=== PATIENT | male | born 1945 | race Caucasian/White ===

== ENCOUNTER 2017-04-10 13:09 | Emergency (ER) | payer OTHER ==
[~2017-04-10] VITALS: Ht 170.2 cm; Wt 70.0 kg
[2017-04-10 13:13] VITALS: TEMP 36.5; Ht 170.2 cm; Wt 70.0 kg
[2017-04-10] MEDS ORDERED: RANITIDINE HCL 50 MG/100 ML D5W IV STA (13:43)
[2017-04-10] MEDS ORDERED: SODIUM CHLORIDE 0.9% 500ML 500 ML IV STA (13:43)
[2017-04-10] MEDS ORDERED: ONDANSETRON 4MG OD TAB PO ONE (13:45)
[2017-04-10] MEDS ORDERED: AMAN100C18 PO (13:48)
[2017-04-10] MEDS ORDERED: ELDP5 PO (13:48)
[2017-04-10] MEDS ORDERED: CARB25TA12 (13:48)
[2017-04-10] MEDS ORDERED: VENL1CAP92 PO (13:48)
[2017-04-10] MEDS ORDERED: ALLO300T2 PO (13:48)
[2017-04-10] MEDS ORDERED: NIFE30TA83 PO (13:48)
[2017-04-10] MEDS ORDERED: CLON0.5T3 PO (13:48)
[2017-04-10] MEDS ORDERED: PRVC40 PO (13:48)
[2017-04-10] MEDS ORDERED: EFFSR75 PO (13:48)
[2017-04-10] MEDS ORDERED: NXM/40 PO (13:48)
[2017-04-10] MEDS ORDERED: ATEN-173 PO (13:48)
--- NOTE | 2017-04-10 13:50 | EMERGENCY ROOM VISIT NOTE ---
History First contact with patient: 13:30 (Marissa Sumner MD) First contact with patient: 13:30 (Candelario Alfaro D.O.) Chief Complaint: DIARRHEA Stated Complaint: DIARRHEA Nursing Triage Summary: pt c/o being up all night with diarrhea (Marissa Sumner MD) History of Present Illness The patient is a 71 year old male who presents to the Emergency Room with complaints of diarrhea over the last day. He reports he is visiting [place] from [place], [place]. Yesterday he ate pizza downtown and also had food from the diner. He does not remember eating very much. Upon getting home he started having frequent diarrhea every hour overnight. He denied any fevers. He vomited once overnight. He took 1/2 tablet of Ciprofloxacin and a 2mg tablet of Immodium. He is still passing watery stool currently. He reports a hx of GERD and feels reflux pain currently. He usually takes a PPI at home. He also has a hx of Parkinson's and took his Parkinson's medication just now. (Marissa Sumner MD) Review of Systems See HPI for pertinent positives & negatives. A total of 10 systems reviewed and were otherwise negative. (Marissa Sumner MD) Past Medical/Surgical History Medical Problems: (1) Parkinson disease (Candelario Alfaro D.O.) PMHx: Parkinson's Disease Prostate Ca PSHx: Removal of BCC's (Marissa Sumner MD) Family History No pertinent FHx (Marissa Sumner MD) Social History Smoking Status: Former Smoker Smokeless Tobacco Use: No Alcohol Use: occasionally Drug Use: none Marital Status: Housing Status: lives with family (Marissa Sumner MD) Current/Historical Medications Scheduled Allopurinol (Zyloprim), 300 MG PO DAILY Amantadine Hcl (Amantadine Hcl), 100 MG PO TID Atenolol (Tenormin), 25 MG PO DAILY Clonazepam (Klonopin), 1 MG PO HS Esomeprazole Magnesium (Nexium), 40 MG PO DAILY Nifedipine Ext Rel (Procardia Xl Ext Rel), 30 MG PO DAILY Pravastatin Sod (Pravastatin Sodium), 40 MG PO DAILY Selegiline HCl (Selegiline HCl), 5 MG PO QAM Venlafaxine Hcl (Effexor Extended Rel), 75 MG PO DAILY Venlafaxine Hcl (Effexor Xr), 37.5 MG PO DAILY Miscellaneous Medications Carbidopa/Levodopa (Sinemet 25MG/100MG) Physical Exam Vital Signs Date Time Temp Pulse Resp B/P (MAP) Pulse Ox O2 Delivery O2 Flow Rate FiO2 04/10/17 14:24 95 04/10/17 13:13 36.5 105 20 120/75 94 Room Air (Candelario Alfaro D.O.) Physical Exam GENERAL: Awake, alert, well-appearing, in no acute distress HENT: Normocephalic, atraumatic. Oropharynx moist, not dry. EYES: Normal conjunctiva. Sclera non-icteric. NECK: Supple. No nuchal rigidity. FROM. No JVD. RESPIRATORY: Clear to auscultation. CARDIAC: Regular rate, normal rhythm. Extremities warm and well perfused. Pulses equal. ABDOMEN: Soft, non-distended. No tenderness to palpation. No rebound or guarding. No masses. RECTAL: Deferred. MUSCULOSKELETAL: Chest examination reveals no tenderness. The back is symmetrical on inspection without obvious abnormality. There is no CVA tenderness to palpation. No joint edema. LOWER EXTREMITIES: Calves are equal size bilaterally and non-tender. No edema. No discoloration. NEURO: Normal sensorium. No sensory or motor deficits noted. SKIN: No rash or jaundice noted. (Marissa Sumner MD) Medical Decision & Procedures Laboratory Results Test 04/10/17 13:43 (Candelario Alfaro, Ele[facility]) ED Course 1:40PM: I performed a history and physical examination on the patient in room C3. I discussed the case with the attending Dr. Alfaro. 1:50PM: I ordered a CBC, CMP, an IV to be placed, and EKG, and 500cc of NSS. I also ordered Zofran 4mg ODT and Zantac IV. 2:40PM: The patient was evaluated by Dr. Alfaro. 4:20PM: The patient was resting comfortably. 4:40PM: The results were discussed with the patient and his sister. He verbalized agreement of the treatment plan. He was discharged home with his sister. (Marissa Sumner MD) Medical Decision 71 yo M w/Divya who presents with diarrhea. Ddx includes gastroenteritis, food borne illness, GI bleed, IBD, IBS. He has been eating at restaurants in town which is a change in his diet from before. He also takes Ciprofloxacin relatively frequently. He had negative bloodwork and a negative C. Diff scan. He was hydrated with IV fluids. He was felt to be stable for discharge with PCP follow up. (Marissa Sumner MD) Impression Primary Impression: Diarrhea Departure Information Dispostion Home / Self-Care Condition GOOD Referrals No Doctor, Assigned (PCP) Patient Instructions My [facility]
[2017-04-10 14:40] LABS: BASO % 0.1 %; BASO ABS # 0.01 K/uL (0-0.2); COMPLETE YES; EOS % 0.1 %; HEMATOCRIT 46.1 % (42-52); IG% 0.2 %; LYMPH % 4.1 %; LYMPH ABS # 0.39 K/uL (1.2-3.4); MEAN CELL VOLUME 82.2 fL (80-100); MEAN CORPUSCULAR HEMOGLOBIN 27.1 pg (25-34); MEAN PLATELET VOLUME 9.6 fL (7.4-10.4); MONO % 6.5 %; PLATELET COUNT 276 K/uL (130-400); RED BLOOD COUNT 5.61 M/uL (4.7-6.1); WHITE BLOOD COUNT 9.55 K/uL (4.8-10.8)
[2017-04-10 15:00] LABS: BUN/CREATININE RATIO 25.7 (10-20); CREATININE 1.52 mg/dl (0.60-1.40); POTASSIUM 3.5 mmol/L (3.5-5.1)
[2017-04-10 16:49] VITALS: BP 134/80; PULSE 77; O2SAT 94
--- NOTE | 2017-04-10 17:20 | EMERGENCY ROOM VISIT NOTE ---
History Report prepared by Wen: Erick Rogel Under the Supervision of: Dr. Candelario Alfaro D.O. First contact with patient: 13:30 Chief Complaint: DIARRHEA Stated Complaint: DIARRHEA Nursing Triage Summary: pt c/o being up all night with diarrhea History of Present Illness The patient is a 71 year old male with a history of Parkinson's who presents to the Emergency Room with complaints of persistent diarrhea that started last night. He says that he is with his family and they are visiting from [place], and have been eating at local restaurants (including pizza places) around here while visiting, but started having many episodes of diarrhea last night, which has persisted throughout the night and into today. There is no noted blood in the diarrhea. The patient denies any fevers. He adds that he has a history of food poisoning. He adds that he took half a table of Cipro as well as Imodium prior to arrival. Source of History: patient Onset: Last night Position: other (global - diarrhea) Symptom Intensity: many episodes Timing: other (persistent) Associated Symptoms: No fevers, No hematochezia Note: No other associated symptoms noted. Review of Systems See HPI for pertinent positives & negatives. A total of 10 systems reviewed and were otherwise negative. Past Medical & Surgical Medical Problems: (1) Parkinson disease Family History No pertinent family history Social History Smoking Status: Former Smoker Smokeless Tobacco Use: No Alcohol Use: occasionally Drug Use: none Marital Status: Housing Status: lives with family Current/Historical Medications Scheduled Allopurinol (Zyloprim), 300 MG PO DAILY Amantadine Hcl (Amantadine Hcl), 100 MG PO TID Atenolol (Tenormin), 25 MG PO DAILY Clonazepam (Klonopin), 1 MG PO HS Esomeprazole Magnesium (Nexium), 40 MG PO DAILY Nifedipine Ext Rel (Procardia Xl Ext Rel), 30 MG PO DAILY Pravastatin Sod (Pravastatin Sodium), 40 MG PO DAILY Selegiline HCl (Selegiline HCl), 5 MG PO QAM Venlafaxine Hcl (Effexor Extended Rel), 75 MG PO DAILY Venlafaxine Hcl (Effexor Xr), 37.5 MG PO DAILY Miscellaneous Medications Carbidopa/Levodopa (Sinemet 25MG/100MG) Allergies Coded Allergies: Levofloxacin (Unverified Allergy, Unknown, tendonitis, 04/10/17) Sulfa Antibiotics (Unverified Allergy, Unknown, ., 04/10/17) Physical Exam Vital Signs Date Time Temp Pulse Resp B/P (MAP) Pulse Ox O2 Delivery O2 Flow Rate FiO2 04/10/17 16:49 77 18 134/80 94 Room Air 04/10/17 15:32 92 18 139/78 98 Room Air 04/10/17 14:24 95 04/10/17 14:18 Room Air 04/10/17 13:13 36.5 105 20 120/75 94 Room Air Physical Exam CONSTITUTIONAL/VITAL SIGNS: Reviewed / noted above. GENERAL: Non-toxic in appearance. INTEGUMENTARY: Warm, dry, and [place]. HEAD: Normocephalic. EYES: without scleral icterus or trauma. ENT/OROPHARYNX: clear and moist. LYMPHADENOPATHY/NECK: Is supple without lymphadenopathy or meningismus. RESPIRATORY: Lungs clear and equal. CARDIOVASCULAR: Regular rate and rhythm. GI/ABDOMEN: Soft and nontender. No organomegaly or pulsatile mass. No rebound or guarding. Normal bowel sounds. EXTREMITIES: Warm and well perfused. BACK: No CVA tenderness. NEUROLOGICAL: Intact without focal deficits. PSYCHIATRIC: normal affect. MUSCULOSKELETAL: Normally developed with good muscle tone. Medical Decision & Procedures Laboratory Results 04/10/17 14:25 Red Blood Count 5.61, Mean Corpuscular Volume 82.2, Mean Corpuscular Hemoglobin 27.1, Mean Corpuscular Hemoglobin Concent 33.0, Mean Platelet Volume 9.6, Neutrophils (%) (Auto) 89.0, Lymphocytes (%) (Auto) 4.1, Monocytes (%) (Auto) 6.5, Eosinophils (%) (Auto) 0.1, Basophils (%) (Auto) 0.1, Neutrophils # (Auto) 8.50, Lymphocytes # (Auto) 0.39, Monocytes # (Auto) 0.62, Eosinophils # (Auto) 0.01, Basophils # (Auto) 0.01 04/10/17 14:25 Test 04/10/17 14:25 White Blood Count 9.55 K/uL (4.8-10.8) Red Blood Count 5.61 M/uL (4.7-6.1) Hemoglobin 15.2 g/dL (14.0-18.0) Hematocrit 46.1 % (42-52) Mean Corpuscular Volume 82.2 fL (80-100) Mean Corpuscular Hemoglobin 27.1 pg (25-34) Mean Corpuscular Hemoglobin Concent 33.0 g/dl (32-36) Platelet Count 276 K/uL (130-400) Mean Platelet Volume 9.6 fL (7.4-10.4) Neutrophils (%) (Auto) 89.0 % Lymphocytes (%) (Auto) 4.1 % Monocytes (%) (Auto) 6.5 % Eosinophils (%) (Auto) 0.1 % Basophils (%) (Auto) 0.1 % Neutrophils # (Auto) 8.50 K/uL (1.4-6.5) Lymphocytes # (Auto) 0.39 K/uL (1.2-3.4) Monocytes # (Auto) 0.62 K/uL (0.11-0.59) Eosinophils # (Auto) 0.01 K/uL (0-0.5) Basophils # (Auto) 0.01 K/uL (0-0.2) RDW Standard Deviation 51.0 fL (36.4-46.3) RDW Coefficient of Variation 16.9 % (11.5-14.5) Immature Granulocyte % (Auto) 0.2 % Immature Granulocyte # (Auto) 0.02 K/uL (0.00-0.02) Anion Gap 5.0 mmol/L (3-11) Est Creatinine Clear Calc Drug Dose 42.9 ml/min Estimated GFR () 53.4 Estimated GFR (Non- 46.1 BUN/Creatinine Ratio 25.7 (10-20) Calcium Level 9.0 mg/dl (8.5-10.1) Total Bilirubin 0.5 mg/dl (0.2-1) Aspartate Amino Transf (AST/SGOT) 21 U/L (15-37) Alanine Aminotransferase (ALT/SGPT) 41 U/L (12-78) Alkaline Phosphatase 115 U/L (45-117) Total Protein 7.7 gm/dl (6.4-8.2) Albumin 3.9 gm/dl (3.4-5.0) Globulin 3.8 gm/dl (2.5-4.0) Albumin/Globulin Ratio 1.0 (0.9-2) Laboratory results as stated above per my review. Medications Administered Medications (Trade) Dose Ordered Sig/Fatuma Route Start Time Stop Time Status Last Admin Dose Admin Sodium Chloride 500 ml @ 999 mls/hr Q31M STAT IV 04/10/17 13:43 04/10/17 14:13 DC 04/10/17 14:33 999 MLS/HR Ondansetron HCl (Zofran Odt) 4 mg ONE ONCE PO 04/10/17 13:45 04/10/17 13:49 DC 04/10/17 14:33 4 MG Ranitidine HCl (zANTac IV) 50 mg NOW STAT IV 04/10/17 13:43 04/10/17 13:49 DC 04/10/17 14:33 50 MG ECG Indication: other (diarrhea) Rate (beats per minute): 94 Rhythm: normal sinus Findings: no ectopy, other (no acute injury) ED Course 1340: The patient was evaluated in room C3 by the resident, Dr. Sumner. 1343: Ordered Zantac IV 50 mg IV, NSS 500 ml @ 999 mls/hr IV. 1345: Ordered Zofran Odt 4 mg PO. 1439: Previous medical records were reviewed. The patient was evaluated in room C3. A complete history and physical examination was performed. 1630: On reevaluation, the patient is resting. I discussed the results and findings with the patient. He verbalized agreement of the treatment plan. He was discharged home. Medical Decision Differential diagnosis: Etiologies such as gastroenteritis, food borne illness, infections, appendicitis , diverticulitis, inflammatory bowel disease, obstruction, GI bleed, biliary pathology, as well as others were entertained. This is a 71-year-old male who presents to the ED with a chief complaint of diarrhea. The patient states that the symptoms started last night. He is from out of town and has been eating at restaurants locally over the past couple of days. The patient denies any other significant symptoms. His physical exam was unremarkable. The blood work revealed an elevated BUN and slightly elevated creatinine. C. difficile was negative. The patient was hydrated with IV fluids. He states that Imodium helped a little. He was told to continue this. He is felt to be stable for discharge and outpatient follow-up. Medication Reconcilliation Current Medication List: was personally reviewed by me Blood Pressure Screening Patient's blood pressure: Normal blood pressure Impression Primary Impression: Diarrhea Scribe Attestation The scribe's documentation has been prepared under my direction and personally reviewed by me in its entirety. I confirm that the note above accurately reflects all work, treatment, procedures, and medical decision making performed by me. Departure Information Dispostion Home / Self-Care Referrals No Doctor, Assigned (PCP) Patient Instructions Diarrhea, My [facility] Additional Instructions - Drink LOTS of water the next few days. The diarrhea is likely viral. - We would recommend you not drive long distances tomorrow, as you may continue to have diarrhea tomorrow. We would recommend wearing Depends in case it occurs again. - Your test for Clostridium difficile infection was NEGATIVE. - You received 4mg of Zofran as well as 500cc of normal saline fluid through your IV. - If you are unable to keep any fluids down, develop fevers, chest pain, or shortness of breath you should seek medical attention.
== END 2017-04-10 17:22 | disposition home or self-care (01) ==
LOC: C.EDB 13:12 → C.EDC 17:22
DX: R19.7 Diarrhea, unspecified (principal); G20 Parkinson's disease; Z87.891 Personal history of nicotine dependence